=== PATIENT | female | born 1970 | race Caucasian/White ===

== ENCOUNTER → 2017-10-05 | Outpatient (CLI) | payer OTHER ==
--- NOTE | 2017-10-05 10:21 | XR ---
EXAMINATION TYPE: XR hand complete RT DATE OF EXAM: 10/05/2017 CLINICAL HISTORY: Jamming injury into thumb with pain. TECHNIQUE: Frontal, lateral and oblique images of the right hand are obtained. Patient refused right wrist imaging as well as ordered by provider. COMPARISON: None. FINDINGS: There is no acute fracture/dislocation evident in the right hand. The joint spaces in the right hand appear within normal limits. The overlying soft tissue appears unremarkable. IMPRESSION: There is no acute fracture or dislocation in the right hand.
== END | disposition home or self-care (01) ==
LOC: RADXRYALE 09:32
PROVIDERS: ATTEND Nurse Practitioner
DX: S60.011A Contusion of right thumb without damage to nail, initial encounter (principal)

== ENCOUNTER → 2020-06-15 | Outpatient (CLI) | payer OTHER ==
--- NOTE | 2020-06-15 08:39 | MR ---
EXAMINATION TYPE: MR liver wo/w con DATE OF EXAM: 06/15/2020 COMPARISON: None. HISTORY: liver disease, liver lesion per order. Hemangioma per patient. CONTRAST: Standard multiplanar, multisequence MRI departmental protocol utilizing 7 mL intravenous Gadavist jyothi olinium contrast. Imaging is performed of the abdomen focusing on the liver. FINDINGS: Liver: Liver is overall normal in size. There is occasional thin-walled subcentimeter cysts scattered throughout the liver, for reference to lesions noted axial image 31 series 701, largest lesion centr al right hepatic lobe image 29 measures 7 mm. No intrahepatic or extra hepatic biliary dilatation. No concerning greater than 1 cm solid mass identified. Postcontrast imaging suboptimal as no dedicated hepatic arterial phase present. There is a 6 to 7 mm round area of enhancement in the periphery right hepatic lobe image 306 series 901 and smaller 4 mm enhancing round lesion posterior to this seen jose alejandro ge 65 series 1101. These lesions are not well seen on T1 and T2-weighted images. Lesions almost certa inly benign, flash filling hemangiomas are suspected. Patent main and central branching portal veins. Patent hepatic veins draining into IVC. No surrounding ascites. Gallbladder unremarkable. Other: Lung bases are grossly clear. The spleen, pancreas, both adrenal glands appear within normal l imits. No concerning renal mass or hydronephrosis seen bilaterally. No suspicious small or large maksim l dilatation. No intra-abdominal ascites. No suspicious intra-abdominal adenopathy. Visualized osseou s structures are intact. Heterogeneously dense tissue in both breasts is partially imaged. IMPRESSION: Occasional tiny thin-walled benign cysts scattered throughout the liver. 2 tiny enhancing foci right hepatic lobe periphery presumed benign favoring flash filling hemangiomas, too small to d efinitively characterize. No worrisome greater than 1 cm solid or cystic intrahepatic mass.
== END | disposition home or self-care (01) ==
LOC: RADMRIMAIN 07:29
PROVIDERS: ATTEND Physician Assistant
DX: K76.89 Other specified diseases of liver (principal); R93.2 Abnormal findings on diagnostic imaging of liver and biliary tract
CPT/HCPCS: 74183; A9585

== ENCOUNTER → 2020-07-03 | Day surgery (SDC) | payer OTHER ==
[2020-07-01 12:04] VITALS: BMI 30.2
[~2020-07-03] MED LIST: LACTATED RINGERS 1,000 ML IV SCH; LIDOCAINE 1% (10MG/ML) FOR IV START INTRADERMA PRN; PROPOFOL 10 MG/ML 20 ML VIAL IV ONE
[2020-07-03 11:00] VITALS: TEMP 97.8
--- NOTE | 2020-07-03 12:16 | P.PCN ---
Date of Procedure: 07/03/20 Procedure(s) Performed: BRIEF HISTORY: Patient is a 49-year-old pleasant to female scheduled for an elective colonoscopy as a part of evaluation of lower abdominal pain and diarrhea with rectal bleeding that happened in March 2020. Symptoms lasted for 7 days and resolved. Now has intermittent lower abdominal discomfort and diarrhea. PROCEDURE PERFORMED: Colonoscopy. PREOPERATIVE DIAGNOSIS: Diarrhea/rectal bleeding and abdominal pain. IV sedation per Anesthesia. PROCEDURE: After informed consent was obtained, the patient, was brought into the endoscopy unit. IV sedation was administered by Anesthesia under continuous monitoring. Digital rectal examination was normal. Initially the Olympus CF-160 flexible video colonoscope was then inserted in the rectum, gradually advanced into the cecum without any difficulty. Careful examination was performed as the scope was gradually being withdrawn. Ileocecal valve and the appendiceal orifice were visualized and appeared normal. Prep was excellent. Mucosa of the cecum, ascending colon, transverse colon, descending colon, sigmoid colon, and rectum appeared normal. Retroflexion was performed in the rectum and no lesions were seen. The patient tolerated the procedure well. IMPRESSION: Normal-appearing colon from rectum to cecum no evidence of colitis or colorectal neoplasia. RECOMMENDATIONS: Findings of this examination were discussed with the patient as well as a family. She was advised to have a repeat screening colonoscopy in 10 years..
[2020-07-03 12:21] VITALS: RESP 17
[2020-07-03 12:29] VITALS: BP 144/90; PULSE 76
== END ==
LOC: ORWHC2ENDO 10:25
PROVIDERS: ATTEND Internal Medicine Gastroenterology
DX: R10.9 Unspecified abdominal pain (principal); R19.7 Diarrhea, unspecified; K62.5 Hemorrhage of anus and rectum; I10 Essential (primary) hypertension; J45.909 Unspecified asthma, uncomplicated; Z79.899 Other long term (current) drug therapy; Z88.0 Allergy status to penicillin; Z88.2 Allergy status to sulfonamides; Z91.041 Radiographic dye allergy status
CPT/HCPCS: 45378; J2704